=== PATIENT | female | born 1985 | race Caucasian/White ===

== ENCOUNTER → 2024-07-16 07:20 | Outpatient (REF) | payer OTHER, SELFPAY | LOC: HWRCS 07:20 | PROVIDERS: ATTENDING PHYSICIAN Internal Medicine Cardiovascular Disease; FAMILY PHYSICIAN Student in an Organized Health Care Education/Training Program | DX: R00.2 Palpitations (principal) | CPT/HCPCS: 93306 ==

== ENCOUNTER 2025-05-17 11:55 | Emergency (ER) | payer OTHER, SELFPAY ==
[2025-05-17 11:56] VITALS: BP 175/101
[2025-05-17 12:10] VITALS: BP 145/105
[2025-05-17 12:35] VITALS: BMI 36.3
[2025-05-17] MEDS: NSS 1000 IV (12:42)
[2025-05-17] MEDS: OMNIPAQUE 50 ML PO (12:43)
[2025-05-17] MEDS: MORPHINE SULFATE 4 MG IV ×2 (12:43→14:40)
[2025-05-17] MEDS: ZOFRAN 4 MG IV ×2 (12:43→14:40)
--- NOTE | 2025-05-17 12:45 | ED.GENMED ---
History of Present Illness
<Vivien Green PA-C - Last Filed: 05/17/25 16:57>
General
Chief Complaint: Abdominal Pain
Source: patient
Exam Limitations: none
Time Seen by Provider: 05/17/25 12:06
History of Present Illness
History of Present Illness:
40yoF with a history of obesity, GERD, and prior gastric sleeve 10 years ago presenting for evaluation of abdominal pain. Pain woke her up from sleep around 2 AM this morning. She reports generalized abdominal pain and bloating. Pain is worse in
the epigastric and left upper quadrant regions and radiates to the bilateral flanks. Pain has been constant since that time. She took Tylenol and gabapentin without relief. The pain is a 7/10 in severity constantly but worsens intermittently.
She reports nausea but denies any vomiting. She is otherwise asymptomatic and denies any diarrhea, constipation, difficulty urinating, shortness of breath, fevers. She was seen in the ED about 5 years ago for abdominal pain which she believes was
from her gallbladder. She has been avoiding greasy foods since then which seems to help. She had orzo with broccoli and cheese last night for dinner.
Past History
<Vivien Green PA-C - Last Filed: 05/17/25 16:57>
Past History
ED Past Medical History: Other (Obesity, Sleep apnea, Chronic back/hip pain, Migraines, bariatric surgery with gastric sleeve)
ED Past Surgical History: Other
Social History
Tobacco: Non-smoker
Alcohol: None
Drug: None
Living: with family
Family History
Family History: Other (Diabetes, WPW, hypertension)
Phy Exam
<Vivien Green PA-C - Last Filed: 05/17/25 16:57>
General Physical Exam
General Presentation: well appearing and no apparent distress
General Skin: warm and dry
General Habitus: normal
General Mental: alert
ENT Exam
ENT Exam: normocephalic
Pulmonary Exam
Pulmonary Exam: no respiratory distress
Gastrointestinal Exam
Gastrointestinal Exam: non tender, soft, non distended and no cva tenderness
Neurological Exam
Neurological Exam: alert
Edward Coma Scale
Eye Opening: Spontaneous
Verbal Response: Oriented
Motor Response: Obeys Commands
GCS Total Score: 15
Musculoskeletal Exam
Musculoskeletal Exam: other (+Tenderness in bilateral thoracic region. No skin changes.)
Skin Exam
Skin Exam: normal color and warm/dry
Psychiatric Exam
Psychiatric Exam: normal mood/affect
<Rohith Hare PA-C - Last Filed: 05/17/25 16:52>
Edward Coma Scale
GCS Total Score: 15
Course
<Vivien Green PA-C - Last Filed: 05/17/25 16:57>
Orders/Labs/Results
Orders:
Orders
05/17/25 12:27
CT Abd/pel W Iv And Oral Contr Urgent
Comment:
Reason For Exam: generalized abd pain radiating to back
0.9% Sodium Chloride 1000 ml [Nss] 1,000 ml IV BOLUS
Iohexol [Omnipaque] See Protocol PO NOW STA
Morphine Sulfate 4 mg IV NOW STA
Ondansetron Injectable [Zofran] 4 mg IV NOW STA
Test Result ONCE
05/17/25 12:42
Complete Blood Count/With Diff Urgent
Comprehensive Metabolic Panel Urgent
HCG, Serum Qualitative Screen Urgent
Lipase Urgent
05/17/25 14:04
Urinalysis Reflex To Culture Urgent
Date Specimen was Collected: 05/17/25
Time Specimen was Collected: 13:57
Urine Microscopic Reflex Cult Urgent
Urine Culture Urgent
TAN Source: U
Specimen Description:
Date Specimen was Collected: 05/17/25
Time Specimen was Collected: 13:57
05/17/25 14:11
Ondansetron Injectable [Zofran] 4 mg IV NOW STA
05/17/25 14:31
Ketorolac [Toradol] 15 mg IV NOW STA
Morphine Sulfate 4 mg IV NOW STA
Abnormal Lab Results
05/17/25 05/17/25
12:42 14:04
WBC 13.0 H 10^3/uL
(4.8-10.8)
MCV 77.5 L fL
(81.0-99.0)
MCH 25.3 L pg
(27.0-31.0)
MCHC 32.6 L g/dL
(33.0-37.0)
Abs Immat Gran (auto) 0.1 H 10^3/uL
(0-0.05)
Absolute Neuts (auto) 9.1 H 10^3/uL
(1.4-6.5)
Absolute Monos (auto) 0.8 H 10^3/uL
(0.1-0.6)
Immature Gran % 1.0 H %
(0-0.5)
Lymphocytes % 20.2 L %
(20.5-51.1)
Sodium 134 L mmol/L
(135-145)
BUN 6 L mg/dl
(7-17)
Creatinine 0.5 L mg/dL
(0.6-1.0)
Leukocyte Esterase Rfl 3+ A
(Negative)
Urine WBC (Reflex) 21-25 A /HPF
(0-5)
Urine Bacteria (Reflex) Few A
(Negative)
05/17/25 12:42
05/17/25 12:42
Vital Signs
Initial and Last Documented VS:
Initial Vital Signs
Temp Pulse Resp BP Pulse Ox
98.2 F 70 16 175/101 100
05/17/25 11:56 05/17/25 11:56 05/17/25 11:56 05/17/25 11:56 05/17/25 11:56
Last Documented Vital Signs
Temp Pulse Resp BP Pulse Ox
98.2 F 69 16 120/80 94
05/17/25 11:56 05/17/25 16:31 05/17/25 11:56 05/17/25 15:33 05/17/25 16:31
<Rohith Hare PA-C - Last Filed: 05/17/25 16:52>
Orders/Labs/Results
Orders:
Orders
05/17/25 12:27
CT Abd/pel W Iv And Oral Contr Urgent
Comment:
Reason For Exam: generalized abd pain radiating to back
0.9% Sodium Chloride 1000 ml [Nss] 1,000 ml IV BOLUS
Iohexol [Omnipaque] See Protocol PO NOW STA
Morphine Sulfate 4 mg IV NOW STA
Ondansetron Injectable [Zofran] 4 mg IV NOW STA
Test Result ONCE
05/17/25 12:42
Complete Blood Count/With Diff Urgent
Comprehensive Metabolic Panel Urgent
HCG, Serum Qualitative Screen Urgent
Lipase Urgent
05/17/25 14:04
Urinalysis Reflex To Culture Urgent
Date Specimen was Collected: 05/17/25
Time Specimen was Collected: 13:57
Urine Microscopic Reflex Cult Urgent
Urine Culture Urgent
TAN Source: U
Specimen Description:
Date Specimen was Collected: 05/17/25
Time Specimen was Collected: 13:57
05/17/25 14:11
Ondansetron Injectable [Zofran] 4 mg IV NOW STA
05/17/25 14:31
Ketorolac [Toradol] 15 mg IV NOW STA
Morphine Sulfate 4 mg IV NOW STA
Abnormal Lab Results
05/17/25 05/17/25
12:42 14:04
WBC 13.0 H 10^3/uL
(4.8-10.8)
MCV 77.5 L fL
(81.0-99.0)
MCH 25.3 L pg
(27.0-31.0)
MCHC 32.6 L g/dL
(33.0-37.0)
Abs Immat Gran (auto) 0.1 H 10^3/uL
(0-0.05)
Absolute Neuts (auto) 9.1 H 10^3/uL
(1.4-6.5)
Absolute Monos (auto) 0.8 H 10^3/uL
(0.1-0.6)
Immature Gran % 1.0 H %
(0-0.5)
Lymphocytes % 20.2 L %
(20.5-51.1)
Sodium 134 L mmol/L
(135-145)
BUN 6 L mg/dl
(7-17)
Creatinine 0.5 L mg/dL
(0.6-1.0)
Leukocyte Esterase Rfl 3+ A
(Negative)
Urine WBC (Reflex) 21-25 A /HPF
(0-5)
Urine Bacteria (Reflex) Few A
(Negative)
05/17/25 12:42
05/17/25 12:42
Vital Signs
Initial and Last Documented VS:
Initial Vital Signs
Temp Pulse Resp BP Pulse Ox
98.2 F 70 16 175/101 100
05/17/25 11:56 05/17/25 11:56 05/17/25 11:56 05/17/25 11:56 05/17/25 11:56
Last Documented Vital Signs
Temp Pulse Resp BP Pulse Ox
98.2 F 69 16 120/80 94
05/17/25 11:56 05/17/25 16:31 05/17/25 11:56 05/17/25 15:33 05/17/25 16:31
<Vviien Green PA-C - Last Filed: 05/17/25 16:57>
MDM/Problems Addressed
Differential Diagnosis Includes:
40yoF here with abd pain and bloating that began this AM. Pain radiates to back. +Nausea. Hx of gastric sleeve. She is hypertensive with otherwise normal signs. No signs of peritonitis on abdominal exam. Differential diagnosis includes:
pancreatitis, PUD, biliary colic, kidney stone, SBO
Initial ED plan: Check abdominal labs, HCG, UA, and CT abdomen with IV/PO contrast. IV morphine, Zofran, and fluid bolus.
Final assessment: Labs reveal a leukocytosis with a WBC of 13. Remainder of labs unremarkable including normal renal function, LFTs, lipase. HCG negative. Case signed out to Chris Hare PA-C pending CT scan.
<Vivien Green PA-C - Last Filed: 05/17/25 16:57>
*Pulse Oximetry
SaO2: 100
Oxygen Mode of Delivery: Room air
<Rohith Hare PA-C - Last Filed: 05/17/25 16:52>
*Pulse Oximetry
Patient hypoxic: no
*Critical Care Note
Total Time (30-74mins, 75-104mins- exclusive of procedures): Not Applicable
<Rohith Hare PA-C - Last Filed: 05/17/25 16:52>
Update Note
Update Note:
Received signout on patient pending CT of abdomen. CT of abdomen with oral and IV contrast were reviewed. There is a gallstone which is new but no evidence of cholecystitis. There is a cystic mass within the lower segment of the uterus. Fibroid
has been seen in this area on prior CT scans. Patient appears comfortable upon reassessment. Labs reviewed normal lipase normal liver functions. Suspect may be biliary colic causing her discomfort. Recommend low-fat diet and will refer to
surgery as outpatient. No indication for admission this time.
ED Attending Note
<Vivien Green PA-C - Last Filed: 05/17/25 16:57>
-
Portions of this chart may have been created with voice recognition software.� Occasional wrong word or��sound alike� substitutions may have occurred due to the inherent limitations of voice recognition software.
Discharge Plan
Departure
Patient Disposition: Home (Routine Discharge)
Date of Disposition: 05/17/25
Time of Disposition: 16:47
Patient with high blood pressure during this ER visit?: No
Discharge Problem:
Gallstone
Instructions: Gallstones (DC)
Prescriptions:
New
ondansetron 4 mg tablet,disintegrating
4 mg PO Q8H PRN (Reason: nausea and vomiting) Qty: 10 0RF
tramadol 50 mg tablet
50 mg PO Q6H PRN (Reason: Pain) Qty: 10 0RF
No Action
[id number]-minerals [Multiple Vitamin, Womens] 1 EACH tablet
1 ea PO DAILY
omeprazole magnesium [Prilosec OTC] 20 MG tablet,delayed release (DR/EC)
20 mg PO DAILY
prednisone 20 MG tablet
40 mg PO DAILY Qty: 8 0RF
albuterol sulfate 1 PUFF HFA aerosol inhaler
2 puff inhalation R Q4HPRN PRN (Reason: breathing) Qty: 1 0RF
dicyclomine 10 MG capsule
10 mg PO QIDPRN PRN (Reason: abdominal pain) Qty: 20 0RF
cyclobenzaprine 10 MG tablet
5 mg PO TID Qty: 7 0RF
ondansetron 4 MG tablet,disintegrating
4 mg PO TIDPRN PRN (Reason: nausea/vomiting) Qty: 10 0RF
diazepam 2 MG tablet
2 mg PO TIDPRN PRN (Reason: Pain, spasm) Qty: 8 0RF
Referrals:
Liz Giang MD [Family Provider, Internal Medicine]
Paul Schroeder MD [Active, Surgical]
Activity Restrictions/Additional Instructions:
Continue with low-fat diet and drink plenty of fluids you eat. Use medicine as needed for nausea or pain. Follow-up with general surgery. Turn if worse in the
Interventions
Interventions:
*Risk Screen - Suicide Last Done: 05/17/25 11:58
*General Assessment Last Done: 05/17/25 12:49
*Neglect/Abuse Screening Last Done: 05/17/25 11:58
*ED COVID-19 Vaccine History Last Done: 05/17/25 12:50
*ED Influenza Vaccine History Last Done: 05/17/25 12:50
[facility] Fall Risk Assessment Tool Last Done: 05/17/25 12:49
NV-Sgcvlq-Yytihuresn Assessment Last Done: 05/17/25 13:04
Discharge Date and Time
Print Language: [id number]
[2025-05-17 12:57] LABS: Hematocrit 38.6 % (37.0-47.0); Hemoglobin 12.6 g/dL (12.0-16.0); Mean Corp Hgb Conc. 32.6 g/dL (33.0-37.0); Mean Corpuscular Volume 77.5 fL (81.0-99.0); Nucleated Red Blood Cells % 0 %; Platelet Count 286 10^3/uL (130-400); Red Cell Dist. Width 13.9 % (11.5-14.5)
[2025-05-17 13:10] LABS: ALT (SGPT) 14 U/L (0-35); AST (SGOT) 18 U/L (14-36); Albumin 4.1 g/dl (3.5-5.0); Alkaline Phosphatase 73 U/L (38-126); Blood Urea Nitrogen 6 mg/dl (7-17); Calcium 8.9 mg/dl (8.4-10.2); Carbon Dioxide 22 mmol/L (22-30); Chloride 105 mmol/L (98-107); Estimated Creatinine Clearance > 125 ml/min; Glucose 95 mg/dl (70-99); Lipase 81 U/L (23-300); Potassium 4.0 mmol/L (3.5-5.1); Sodium 134 mmol/L (135-145); Total Protein 6.8 g/dl (6.3-8.2); eGFR > 60.00
[2025-05-17 13:13] LABS: HCG, Serum Qualitative Screen Negative
[2025-05-17] MEDS: TORADOL 15 MG IV (14:40)
[2025-05-17 14:50] LABS: Urine Character Clear (Clear)
[2025-05-17 15:29] LABS: Urine Red Blood Cell 0-2 /HPF (0-2); Urine Squamous Cell >30 /LPF (Few); Urine White Cell 21-25 /HPF (0-5)
[2025-05-17 15:33] VITALS: BP 120/80
== END 2025-05-17 17:20 | disposition home or self-care (01) ==
LOC: EMR 11:55
PROVIDERS: Physician Assistant; EMERGENCY PHYSICIAN Emergency Medicine; FAMILY PHYSICIAN Student in an Organized Health Care Education/Training Program
DX: K80.20 Calculus of gallbladder without cholecystitis without obstruction (principal); R11.0 Nausea; D25.9 Leiomyoma of uterus, unspecified; D72.829 Elevated white blood cell count, unspecified; G47.30 Sleep apnea, unspecified; G89.29 Other chronic pain; Z98.84 Bariatric surgery status
CPT/HCPCS: 96374; 96375; 96376; 96361; 99284; 74177; 80053; 81003; 81015; 83690; 84703; 85025; 87086; Q9967